=== PATIENT | male | born 2005 | race Caucasian/White ===

== ENCOUNTER 2024-04-29 00:54 | Outpatient (CLI) | payer OTHER, SELFPAY | END 2024-04-29 00:55 | disposition home or self-care (01) | LOC: AMB 05-03 11:00 | PROVIDERS: Visit Provider Family Medicine | DX: F10.129 Alcohol abuse with intoxication, unspecified (principal); R41.82 Altered mental status, unspecified | CPT/HCPCS: A0425; A0429 ==

== ENCOUNTER 2024-04-29 01:10 | Emergency (ER) | payer OTHER, SELFPAY ==
[2024-04-29 01:15] VITALS: BP 104/68; PULSE 76; RESP 16; TEMP 36.6; O2SAT 97; BMI 22.6
--- NOTE | 2024-04-29 01:43 | ED_ITS ---
HPI - General Adult General Chief complaint: Alcohol/Intoxication Stated complaint: ETOH Time Seen by Provider: 04/29/24 01:18 Source: EMS Mode of arrival: EMS Limitations: altered mental status History of Present Illness HPI narrative: Heavily intoxicated estimated at 16-year-old male presents to the emergency department by EMS. No ID or date available. 911 was called because patient was found sleeping on a residential lawn in town. Noted to be intoxicated by police with no signs of injury, assault or trauma. Covered in vomit and own urine. Patient was agitated and heavily intoxicated upon arrival to ED and was cursing and swearing at the nursing staff. Refused to get undressed. I examined the patient about 20 minutes later and patient is sleeping, arouses slightly to voice nods and falls back to sleep. Does not offer any additional history. Per EMS, no signs of assault, drug paraphernalia. And accompanying female will be brought in separately, similar condition. No prior similar ED visits. No prior reported police record, but identity not yet confirmed. Patient does not disclose that they have any prior medical problems, surgeries, medications or allergies. ROS is unreliable, attempted. Related Data Allergies Allergy/AdvReac Type Severity Reaction Status Date / Time Unable to Assess Allergy Verified 04/29/24 01:24 Exam Const: Vital Signs, click to edit/add: Vital Signs - 24 hr 04/29/24 01:15 Temperature 97.9 F Pulse Rate [Right Pulse Oximeter] 76 Respiratory Rate 16 Blood Pressure [Ri ght Upper Arm] 104/68 L Pulse Oximetry 97 Oxygen Delivery Me thod Room Air Documenting provider has reviewed patient's vital signs: yes Other: Initially agitated, calm by the time of my exam. Will arouse to voice and painful stimuli. Sleeping comfortably, maintaining oxygen saturations. Smells of urine and vomit. HENMT: Common normals: normocephalic, moist oral mucous membranes and oropharynx normal Head and scalp: normocephalic Face and sinus: normal facial exam; no facial abrasion Throat: posterior oropharynx normal Other: Dentition, tongue normal with no signs of biting or seizure activity. Eye: Common normals: PERRL Pupil: PERRL Other: Symmetric pupils. Consciously squints away from my light. Neck & C-Spine: Common normals: full ROM and no lymphadenopathy Chest: Common normals: inspection of chest normal and palpation of chest normal Resp: Common normals: normal respiratory effort, no use of accessory muscles and clear to auscultation bilaterally Auscultation: clear to auscultation bilaterally Cardio: Common normals: regular rate, regular rhythm, S1 normal heart sound, S2 normal heart sound and no murmurs Rate: regular rate Rhythm: regular r hythm Heart sounds: S1 normal and S2 normal GI: Common normals: Normal to inspection, nondistended, normoactive bowel s ounds present Back & Pelvis: Common normals: thoracic and lumbar spine normal to inspection Other: Patient in the prone position. No obvious signs of ecchymosis or trauma to the back. Extremity: Common normals: normal to inspection Other: jeans are still in place but there are no signs of abrasions or damage to the genes. Palpation along the thighs and lower legs does not reveal any wincing or signs of tenderness. Neuro: Common normals: moves all extremities Other: Moves all extremities away from painful stimuli. No abnormal posturing. Psych: Other: Heavily intoxicated, cannot be assessed. Skin: Common normals: no rashes or lesions noted General skin exam: no rashes or lesions noted Course Course ED Course: 16-year-old male found down with signs of acute alcohol intoxication. There was not enough convincing evidence that the patient is having a life-threatening medical event otherwise. Does seem to be protecting airway adequately. Will just monitor in the emergency department and watch for any signs of decompensation verses expected sobering over the next 4-6 hours. Further workup if any signs of clinical decline. Reevaluation(s) Time of Reevaluation #1: 03:09 Reevaluation #1: Patient awake, conversational. Regretful of drinking. Does recall events of the night including leaving a house alliance party with intention to head to the bar with some friends. One of the friends became more heavily intoxicated, the group decided to split up and patient ultimately stop to rest with another friend, concerned home historical records administrator then called 911 and the remainder of the story is consistent with that reported by the EMS team. Patient not noticing any pain, no feelings that they were assaulted. Remorseful and feeling well enough to go home. Alarm symptoms reviewed that would warrant 80 presentation. Okay to use Tylenol and ibuprofen as needed for body aches, discomfort. Seek resources for [facility] for problematic drinking if indicated. Written instructions provided. Vital Signs Vital signs: Initial Vital Signs Temperature 97.9 F 04/29/24 01:15 Temperature Source Temporal Artery Scan 04/29/24 01:15 Pulse Rate 76 04/29/24 01:15 Pulse Rhythm Regular 04/29/24 01:15 Pulse Strength 3+ Normal 04/29/24 01:15 Respiratory Rate 16 04/29/24 01:15 Blood Pressure 104/68 L 04/29/24 01:15 Blood Pressure Mean 80 04/29/24 01:15 Blood Pressure Position Supine 04/29/24 01:15 Pulse Oximetry 97 04/29/24 01:15 Oxygen Delivery Method Room Air 04/29/24 01:15 Vital Signs Temperature 97.9 F 04/29/24 01:15 Pulse Rate 76 04/29/24 01:15 Respiratory Rate 16 04/29/24 01:15 Blood Pressure 104/68 L 04/29/24 01:15 Pulse Oximetry 97 04/29/24 01:15 Oxygen Delivery Method Room Air 04/29/24 01:15 Temperature 97.9 F 04/29/24 01:15 Pulse Rate 76 04/29/24 01:15 Respiratory Rate 16 04/29/24 01:15 Blood Pressure 104/68 L 04/29/24 01:15 Pulse Oximetry 97 04/29/24 01:15 Oxygen Delivery Method Room Air 04/29/24 01:15 Discharge Plan Discharge Clinical Impression: Alcoholic intoxication Patient Disposition: Home w/ Parent or Adult Condition: Improved Instructions: Alcohol Intoxication (DC) Additional Instructions: As we discussed, there are no significant signs of assault or trauma tonight. You were found intoxicated, sleeping on a lawn. A concern home historical records administrator called right away when they saw you stop on their property. We do not have testing to tell if you were given any mood altering substances tonight. It seems as though you are safe at this time. He will be discharged home with campus safety. Please be more careful with your alcohol consumption in the future. If you think you have a problem with alcohol, please investigate resources from [facility] or the local [facility]. Your cleared to return to school, driving and or work activities after 8:00 a.m.. Activity Level: No Restrictions Discharge Diet: Regular Stand Alone Forms: [employer] Info Instructions
--- NOTE | 2024-04-29 03:16 | ED.NURSE ---
Pt was medically cleared by doctor to go home at this time. Pt was discharged to [facility]. Pt okay to go home with a safe ride.
--- OUTSIDE RECORDS SUMMARY | 2024-04-29 03:20 | XMS_ITS | Clinical Summary ---
Author Organization [facility] es Address [address] [place] [address] Care Team Providers Care Strategic Account Executive Name Role Phone Konstantin-PlaudLeslye Primary Care Provider [phone] Source Comments Applies to Substance Abuse Treatment Information Only: The Federal rules restrict any use of the information to criminally investigate or prosecute any Alcohol or Drug Abuse Patient.[facility] Allergies No known active allergies Medications No known medications Social History Tobacco Use Types Packs/Day Years Used Date Smoking Tobacco: Never Assessed Sex and Gender Information Value Date Recorded Sex Assigned at Not on file Legal Sex Male 6:33 PM CDT Gender Identity Not on file Sexual Orientation Not on file Last Filed Vital Signs Vital Sign Reading Time Taken Comments Blood Pressure 113/74 08/18/2022 2:17 PM CDT Pulse 65 08/18/2022 2:17 PM CDT Temperature 36.6 C (97.8 F) 08/18/2022 2:17 PM CDT Respiratory Rate 18 08/18/2022 2:17 PM CDT Oxygen Saturation 99% 08/18/2022 2:17 PM CDT Inhaled Oxygen Concentration - - Weight 49.9 kg (110 lb) 08/18/2022 2:17 PM CDT Height - - Body Mass Index - - Plan of Treatment Health Maintenance Due Date Last Done Comments Depression Screening 2015 COVID-19 Vaccine (2023- season) 2023 03/05/2022, 09/17/2021, 08/11/2020, Additional history exists Influenza Vaccine-Adult (#1) 2023 05/01/2021, 04/29/2016 DTaP,Tdap,and Td Vaccines (7 - Tdap) 05/13/2024 05/13/2014, 12/07/2008, 01/27/2008, Additional history exists Hepatitis B Completed 2003, 06/06, 2003 Pneumococcal Vaccine (Adult / Pedi) Aged Out 07/21/2004, 2003, 2003, Additional history exists No longer eligible based on patient's age to complete this topic Meningococcal B Vaccine Completed 06/23/2015, 05/18 Gardasil Shot Completed 11/22/2017, 05/02/2017 Meningococcal Vaccine Completed 05/01/2019, 015 Insurance [employer] [place] [address] Care Teams Strategic Account Executive Relationship Specialty Start Date End Date Leslye Kidd [address] [place] [id number] PCP - General Pediatrics. 08/18/22
--- OUTSIDE RECORDS SUMMARY | 2024-04-29 03:20 | XMS_ITS | Patient Health Record ---
Author Organization [facility] Address [address] [place] [address] Care Team Providers Care Deputy Court Name Role Phone Leslye Kidd Primary Care Provider ALLERGIES No Known Allergies REASON FOR REFERRAL No Information MEDICATIONS Medication SIG (Take, Route, Frequency, Duration) Notes Start Date End Date Status Triamcinolone Acetonide 0.025 % 1 application to affected area Externally Twice a day for 10 days 08/29/2019 Unknown hydrOXYzine Pamoate 25 MG 1-2 cap s Oral ly prn itching tid for 7 days 08/29/2019 Unknown Cetirizine HCl 10 MG 1 tablet as needed Orally Once a day for 30 day(s) 12/20/2019 Unknown Fluticasone Propionate 50 MCG/ACT 2 spray in each nostril Nasally Once a day for 30 day(s) 12/20/2019 Unknown prednisoLONE Sodium Phosphate 25 MG/5ML 3 ml Orally Once a day for 2 days 06/21/2016 Unknown Bacitracin Zinc 500 UNIT/GM 1 applicatio n to affected area Externally Once a day Unknown Ibuprofen 100 MG/5ML 5 ml as needed Oral ly every 6 hrs Unknown IMMUNIZATIONS Vaccine Route Administration Date Status Comme nts DTaP Unknown 2003 Administered DTaP Unknown 2003 Administered DTaP Unknown 07/21/2004 Administered DTaP-Hep B-IPV Unknown 2003 Administered OZsY-Ghv-LPL Unknown 01/27/2008 Administered [id number]-Ixx-HWA Unknown 12/07/2008 Administered FluLAVAL 6M AND UP IM Intramuscular 05/01/2021 Administere d Fluzone 0.5mL, 3yr and Older Unknown 04/29/2016 Administered Hep A, ped/adol, 2 dose Unknown 04/13/2005 Administered Hep A, ped/adol, 2 dose Unknown 05/03/2006 Administered Hepatits B Pediatric/Adolescent (Engerix-B) Unknown 2003 Administered Hepatits B Pediatric/Adolescent (Engerix-B) Unknown 2003 Administered Hib (ACTHib) Unknown 2003 Administered Hib (ACTHib) Unknown 2003 Administered Hib (ACTHib) Unknown 2003 Administered Hib (ACTHib) Unknown 01/27/2008 Administered HPV VIRUS VACCINE 9 ELIO IM IM Intramuscular 05/02/2017 Adm inistered HPV VIRUS VACCINE 9 ELIO IM IM Intramuscular 11/22/2017 Adm inistered IPV Unknown 2003 Administered IPV Unknown 01/22/2004 Administered MENB RP W/OMV VACCINE IM (Bexsero) IM Intramuscular 05/19/2015 Administered MENB RP W/OMV VACCINE IM (Bexsero) IM Intramuscular 06/23/2015 Administered Meningococcal MCV4O (CVX 114) IM Intramuscular 05/13/2014 Administered Meningococcal MCV4O (CVX 114) IM Intramuscular 05/01/2019 Administered MMR Unknown 04/24/2004 Administered MMR Unknown 08/24/2012 Administered PCV7 Unknown 2003 Administered PCV7 Unknown 2003 Administered PCV7 Unknown 2003 Administered Pneumococcal conjugate vaccine 13 Unknown 07/21/2004 Administered Tdap IM Intramuscular 05/13/2014 Administered Varicella Unknown 04/24/2004 Administered Varicella Unknown 07/27/2012 Administered SOCIAL HISTORY Sex Assigned At : Social History Observation Description Sex Assigned At Unknown Sexual History Question Answer Notes Had sex in the past 12 months (vaginal, oral, or anal)? No Have you ever had a Sexually transmitted disease ? No PROBLEMS No Known Problems PLAN OF TREATMENT Pending Test Test Name Order Date Rapid Strep 09/04/2021 COVID19 09/04/2021 Insurance Providers Payer Name Payer Address Payer Phone Subscriber Number Group Number Insured Name Patient Relationship to Insured Coverage Start Date Coverage End Date [employer] [address] [address] [place] [phone] [id number] Fredy Cisneros Self - patient is the insured MEDICAL (GENERAL) HISTORY Surgical History Surgery Date(Month/Year) Hospitalization History Reason Date(Month/Year) dog bite 10/2015
== END 2024-04-29 03:24 | disposition home or self-care (01) ==
LOC: ED 03:18
PROVIDERS: Emergency Provider Family Medicine
DX: F10.129 Alcohol abuse with intoxication, unspecified (principal)
CPT/HCPCS: 99283